=== PATIENT | female | born 1980 | race Two or more races ===

== ENCOUNTER 2020-03-11 13:21 | Outpatient (REF) | payer OTHER, SELFPAY ==
--- NOTE | 2020-03-11 13:30 | US_ITS ---
EXAMINATION: US THYROID CLINICAL INFORMATION: Nontoxic goiter, unspecified. COMPARISON: Ultrasound soft tissue head/neck thyroid dated 02/28/2019. TECHNIQUE: Linear transducer grayscale and color Doppler examination with attention to the region of the thyroid. FINDINGS: SIZE: Measurements of the thyroid lobes and nodules are given in sagittal, anteroposterior and transverse dimensions respectively. Right Thyroid Lobe: 6.2 x 2.5 x 2.3 cm, volume 18.6 mL. Previously 5.6 x 1.9 x 2.1 cm, volume 12 mL. Parenchyma: The gland echotexture is heterogeneous. Thyroid vascularity is increased. Left Thyroid Lobe: 6.2 x 2.5 x 2.8 cm, volume 23.2 mL. Previously 5.9 x 2.1 x 2.6 cm, volume 17 mL. Parenchyma: The gland echotexture is heterogeneous. Thyroid vascularity is increased. Isthmus: 1.0 cm in maximum AP dimension. Previously 1.1 cm. Estimated total number of nodules greater than or equal to 1 cm: 4. [employer] nodules are described as follows: 1. Location: Right mid. Size: 2.0 x 1.1 x 1.1 cm, volume 1.3 mL. Previously: 2.0 x 0.9 x 1.0 cm, volume 0.9 mL. Nodule characteristics: Composition: Solid (2). Echogenicity: Hyperechoic (1). Shape: Not taller than wide (0). Margins: Smooth (0). Echogenic Foci: None (0). ACR TI-RADS total points: 3 ACR TI-RADS category: 3 Significant change in size (>/= 20% in 2 dimensions and minimal increase of 2 mm): No Change in features: No 2. Location: Left mid. Size: 2.3 x 1.6 x 2.7 cm, volume 5.2 mL. Previously: Not seen previously. Nodule characteristics: Composition: Solid (2). Echogenicity: Hypoechoic (2). Shape: Not taller than wide (0). Margins: Smooth (0). Echogenic Foci: Macrocalcifications (1). ACR TI-RADS total points: 5 ACR TI-RADS category: 4 Significant change in size (>/= 20% in 2 dimensions and minimal increase of 2 mm): Newly seen. Change in features: Newly seen. 3. Location: Left middle. Size: 1.8 x 1.2 x 1.3 cm, volume 1.5 mL. Previously: 1.9 x 1.6 x 1.7 cm, volume 2.7 mL. Nodule characteristics: Composition: Solid (2). Echogenicity: Hyperechoic (1). Shape: Taller than wide (3). Margins: Smooth (0). Echogenic Foci: None (0). ACR TI-RADS total points: 5 ACR TI-RADS category: 4 Significant change in size (>/= 20% in 2 dimensions and minimal increase of 2 mm): No Change in features: No 4. Location: Left middle. Size: 1.8 x 0.9 x 1.1 cm, volume 0.9 mL. Previously: 1.7 x 0.7 x 1.1 cm, volume 0.7 mL. Nodule characteristics: Composition: Solid (2). Echogenicity: Hyperechoic (1). Shape: Not taller than wide (0). Margins: Irregular (2). Echogenic Foci: None (0). ACR TI-RADS total points: 5 ACR TI-RADS category: 4 Significant change in size (>/= 20% in 2 dimensions and minimal increase of 2 mm): No Change in features: No NODES: No lymphadenopathy is seen in the tissue surrounding the thyroid gland. US/US thyroid IMPRESSION: 1. There is a diffuse thyroid goiter. 2. There are 3 left thyroid lobe category 4 lesions, which meet biopsy criteria and are amenable to ultrasound-guided biopsy, if clinically indicated and not already performed. 3. There is heterogeneous thyroid echotexture and increase in thyroid vascularity, can be associated with thyroiditis ACR TI-RADS RECOMMENDATIONS: Ultrasound-guided fine-needle aspiration, followup ultrasound, no further follow up. * TR1 (0 point) and TR 2 (2 points): No FNA or follow up * TR3 (3 points): FNA if more than or equal to 2.5 cm in maximum dimension, follow up in 1, 3 and 5 years if 1.5 to 2.4 cm in maximum dimension. * TR 4 (4-6 points): FNA if more than or equal to 1.5 cm in maximum dimension, follow up in 1, 2, 3 and 5 years if 1 to 1.4 cm in maximum dimension. * TR 5 (more than or equal to 7 points): FNA if more than or equal to 1 cm in maximum dimension, follow up every year for 5 years if 0.5 to 0.9 cm in maximum dimension. * TR3, TR4 or TR5 nodules that are below the size threshold for follow up receive no follow up.
== END 2020-03-11 13:22 | disposition home or self-care (01) ==
LOC: HO.US 13:21
PROVIDERS: PCP Internal Medicine; Visit Provider Internal Medicine
DX: E04.9 Nontoxic goiter, unspecified (principal)
CPT/HCPCS: 76536

== ENCOUNTER → 2020-05-22 08:04 | Outpatient (BNVA) | payer OTHER, SELFPAY | PROVIDERS: PCP Internal Medicine; Visit Provider Internal Medicine | DX: E04.2 Nontoxic multinodular goiter (principal); E55.9 Vitamin D deficiency, unspecified | CPT/HCPCS: 99202 ==

== ENCOUNTER 2020-05-22 09:35 | Outpatient (REF) | payer OTHER, SELFPAY ==
[2020-05-22 11:29] LABS: Albumin Level 4.3 g/dL (3.5-5.0)
[2020-05-22 11:35] LABS: Free T4 (Free Thyroxine) 0.76 ng/dL (0.71-1.85); Thyroid Stimulating Hormone 5.22 uIU/mL (0.32-4.0); Vitamin D 25-OH Total 20.4 ng/mL (>30)
[2020-05-22 11:42] LABS: Calcium 9.4 mg/dL (8.4-10.2)
[2020-05-23 12:22] LABS: Calcium (PTHI) 9.4 mg/dL (8.6-10.2); PTHI 34 pg/mL (14-64)
== END 2020-05-22 09:36 | disposition home or self-care (01) ==
LOC: HO.10HDL 09:35
PROVIDERS: Visit Provider Internal Medicine
DX: E04.2 Nontoxic multinodular goiter (principal); E55.9 Vitamin D deficiency, unspecified
CPT/HCPCS: 36415; 82040; 82306; 82310; 83970; 84439; 84443

== ENCOUNTER → 2020-06-04 13:02 | Outpatient (BNVA) | payer OTHER, SELFPAY | PROVIDERS: PCP Internal Medicine; Visit Provider Internal Medicine Gastroenterology ==

== ENCOUNTER 2020-07-04 08:06 | Outpatient (REF) | payer OTHER, SELFPAY ==
--- NOTE | 2020-07-04 08:46 | PM.OP ---
Brief Operative Note Date of Service: 07/04/20 Surgeon: Ktity Iraheta, DO This is doctor Kitty Iraheta. This is an ultrasound-guided fine-needle aspiration report. Indication: Multinodular Thyroid Porcedure: Procedure was explained to the patient. Alternatives, the risk and benefits were discussed. Written consent was obtained. A time-out was also obtained. After sterile preparation, fine-needle aspiration of a left mid pole 2.7 cm thyroid nodule was performed using direct ultrasound guidance to confirm accurate needle placement. Three aspirations were made using 27 gauge needles. Samples were submitted for cytology. One pass was dedicated for [employer] community relations assistant testing. Our attention was then turned to the right side. Fine-needle aspiration of a right mid pole 2.0 cm thyroid nodule was performed using direct ultrasound guidance to confirm accurate needle placement. Five aspirations were made using 27 gauge needles. Samples were submitted for cytology. One pass was dedicated for [employer] community relations assistant testing. The patient tolerated the procedure well. Aftercare instructions were provided. Impression: Uncomplicated fine needle aspiration biopsy of a left mid pole 2.7 cm thyroid nodule and a right mid pole 2.0 cm thyroid nodule under ultrasound guidance. Was an Jowl Trimmer used for this Procedure?: No Estimated blood loss (mL): 0
[2020-07-04] MEDS: Lidocaine HCl 1 % MPF 5 ML VIAL SUBCUT (11:54)
== END 2020-07-04 08:07 | disposition home or self-care (01) ==
LOC: HO.US 08:06
PROVIDERS: PCP Internal Medicine; Visit Provider Internal Medicine
DX: E04.2 Nontoxic multinodular goiter (principal)
CPT/HCPCS: 10005; 10006; 88172; 88173; 88177

== ENCOUNTER → 2020-07-25 10:49 | Outpatient (BNVA) | payer OTHER, SELFPAY | PROVIDERS: PCP Internal Medicine; Visit Provider Internal Medicine ==

== ENCOUNTER → 2021-06-26 13:03 | Outpatient (BNVA) | payer OTHER, SELFPAY | PROVIDERS: PCP Physician Assistant; Visit Provider Internal Medicine | DX: E04.2 Nontoxic multinodular goiter (principal) ==

== ENCOUNTER 2021-07-14 14:34 | Outpatient (REF) | payer OTHER, SELFPAY ==
[2021-07-14 15:57] LABS: Free T4 (Free Thyroxine) 0.83 ng/dL (0.71-1.85); Thyroid Stimulating Hormone 2.83 uIU/mL (0.32-4.0); Vitamin D 25-OH Total 25.3 ng/mL (>30)
== END 2021-07-14 14:35 | disposition home or self-care (01) ==
LOC: HO.LAB 14:34
PROVIDERS: PCP Physician Assistant; Visit Provider Internal Medicine
DX: E55.9 Vitamin D deficiency, unspecified (principal); E04.1 Nontoxic single thyroid nodule; E04.2 Nontoxic multinodular goiter
CPT/HCPCS: 36415; 82306; 84439; 84443